=== PATIENT | male | born 1975 ===

== ENCOUNTER 2017-01-27 10:30 | Emergency (ER) | payer OTHER ==
--- NOTE | 2017-02-01 10:38 | ER ---
ADMIT: 01/27/2017 RM/LOC: ER [facility] MR#: [id number] [id number] PETER DELGADO [address] [place] [address] Emergency Room Report SEX: M AGE: 42 : 1975 DATE: 01/27/2017 CHIEF COMPLAINT: Right rib pain. HISTORY OF PRESENT ILLNESS: This is a 42-year-old male, who presents to the ER after he sustained a blow to his chest. The patient states he was at work when an auger attachment on a [employer] struck him in the anterior right chest. He complains of anterior right rib pain. Denies any shortness of breath, cough, or abdominal pain. COURSE IN THE EMERGENCY ROOM: The patient was seen and examined. He does have some tenderness over his right anterior chest. No obvious ecchymosis or crepitus on exam. Did get a right-sided rib series, negative for any acute fracture. IMPRESSION: Right rib contusion. DISPOSITION: The patient was discharged, to use Tylenol or Motrin as needed for pain. Return home and rest. Apply ice as needed. Return with worsening signs or symptoms. Follow up with his doctor as needed. Discharged in stable condition. CELINE Francisco / José Garibay MD / db JOB #: [id number] CC: José Garibay MD, Attending Physician UNKNOWN, Family Physician
== END 2017-01-27 13:45 | disposition home or self-care (01) ==
LOC: ER 10:30
DX: S20.211A Contusion of right front wall of thorax, initial encounter (principal); W22.8XXA Striking against or struck by other objects, initial encounter; Y92.69 Other specified industrial and construction area as the place of occurrence of the external cause; Y99.0 Civilian activity done for income or pay